=== PATIENT | female | born 1985 | race Two or more races ===

== ENCOUNTER 2018-07-09 15:39 | Emergency (ER) | payer MEDICAID ==
[~2018-07-09] VITALS: Ht 160 cm; Wt 72.0 kg
[2018-07-09 15:53] VITALS: BP 115/79
[2018-07-09] MEDS ORDERED: DIPH,PERTUSS(ACELL),TET VAC/PF 0.5 ML IM-VACC ONE ×2 (16:00→16:04)
== END 2018-07-09 16:36 | disposition home or self-care (01) ==
LOC: ED 16:18
DX: S91.331A Puncture wound without foreign body, right foot, initial encounter (principal); W45.0XXA Nail entering through skin, initial encounter; Y93.89 Activity, other specified; Y99.8 Other external cause status; Y92.89 Other specified places as the place of occurrence of the external cause
CPT/HCPCS: 90471; 90715; 99284